=== PATIENT | female | born 1960 | race Caucasian/White ===

== ENCOUNTER 2019-08-21 06:18 | Outpatient (CLI) | payer OTHER ==
[2019-08-21 14:37] LABS: Hemoglobin 14.3 g/dL (12.0-16.0); Mean Corpuscular HGB CONC 32.5 g/dL (32.0-36.0); Mean Corpuscular Hemoglobin 30.5 pg (27.0-31.0); Mean Corpuscular Volume 93.9 fL (78.0-98.0); Mean Platelet Volume 7.3 fL (7.4-10.4); Platelet Count 350 thou/uL (130-400); RBC Distribution Width 11.5 % (11.5-14.5); White Blood Cell (WBC) Count 10.4 thou/uL (4.8-10.8)
[2019-08-22 10:57] LABS: SARS-CoV-2 MS2 Positive; SARS-CoV-2 N Gene Negative; SARS-CoV-2 S Gene Negative; SARS-CoV-2 orf1ab Negative
== END 2019-08-21 06:19 | disposition home or self-care (01) ==
LOC: LABBT 06:18
PROVIDERS: ATTEND Orthopaedic Surgery Sports Medicine
DX: Z01.818 Encounter for other preprocedural examination (principal); Z11.59 Encounter for screening for other viral diseases; S83.232D Complex tear of medial meniscus, current injury, left knee, subsequent encounter
CPT/HCPCS: 85027; 87635; 93005; 93010; U0003

== ENCOUNTER 2019-08-23 05:58 | Day surgery (SDC) | payer OTHER ==
[2019-08-21 13:16] VITALS: BMI 21.6
[2019-08-23] MEDS ORDERED: Fentanyl 100 MCG/2 ML VIAL ONE ×4 (06:09→08:22)
[2019-08-23] MEDS ORDERED: Midazolam HCl 2 mg/2 ml Vial ONE (06:39)
[2019-08-23] MEDS ORDERED: Dexamethasone 4 mg/ml Vial ONE (06:41)
[2019-08-23] MEDS ORDERED: Bupivacaine 0.25% HCL 30 ML VIAL ONE (06:52)
[2019-08-23] MEDS ORDERED: Lidocaine 1% w/Epinephrine 1:100K 20 ML VIAL ONE (06:52)
[2019-08-23] MEDS ORDERED: Bupivacaine PF 0.5% 30 ML VIAL ONE (06:52)
[2019-08-23] MEDS ORDERED: CEFAZOLIN 1 GM VIAL ONE (07:10)
[2019-08-23] MEDS ORDERED: Sodium Chloride 0.9% 100 ML ONE (07:12)
[2019-08-23] MEDS ORDERED: Ketorolac Tromethamine 30 MG/ML VIAL ONE (08:10)
[2019-08-23] MEDS ORDERED: Morphine 4 MG/ML VIAL ONE (08:24)
[2019-08-23] MEDS ORDERED: Morphine 2 MG/ML SYRINGE ONE (08:34)
--- NOTE | 2019-08-23 08:36 | OP ---
DATE OF PROCEDURE: 08/23/2019 PREOPERATIVE DIAGNOSES: 1. Left knee medial meniscus tear. 2. Left knee degenerative joint disease of the knee. POSTOPERATIVE DIAGNOSES: 1. Posterior horn medial meniscus tear. 2. Grade 4 chondral defect of the distal femur. 3. Grade 3 chondral defect of the lateral tibia. PROCEDURES PERFORMED: 1. Examination under anesthesia with diagnostic arthroscopy. 2. Arthroscopic partial posterior horn medial meniscectomy. 3. Arthroscopic chondroplasty of the patellofemoral joint and trochlear groove, a separate compartment. 4. Arthroscopic loose body removal. ANESTHESIA: General. TOURNIQUET TIME: 21 minutes. BLOOD LOSS: Minimal. DRAINS: None. COMPLICATIONS: None. DESCRIPTION OF PROCEDURE: Following induction of general anesthesia, the patient was placed supine on the operating room table. A pneumatic tourniquet was applied to proximal left thigh. The left leg was then placed in a leg holding device. Left leg was then prepped and draped in sterile fashion for surgery on the left knee. After exsanguination of the knee, the tourniquet was inflated to 300 mmHg. An arthroscope was inserted through a parapatellar lateral portal and the knee joint was examined. The intra-articular aspect of the knee demonstrated normal articular cartilage of the lateral femoral condyle. The lateral tibial articular surface had a chondral defect of the posterior aspect of the tibial articular surface. The area was depressed. There were no loose bodies or articular surface fragments. There was synovitis in the posterior compartment, that was lightly debrided. The meniscus again was completely normal. There was noted to be an osteochondral loose body at the anterior horn of the lateral meniscus, that was catching, locking, impinging on the anterior compartment. It was lightly debrided using motorized shaver to a smooth, stable base completely removing the loose body. The intercondylar notch demonstrated an intact ACL. The synovium was noted to be hypertrophied and rheumatoid like. After debridement, the ACL and PCL were completely normal. Medial compartment had articular surface degeneration in both the tibia and the femur, grade 2 and degenerative change. Minimal chondroplasty was required to obtain a smooth stable base. The medial meniscus had fraying of the posterior horn. It was carefully evaluated. There was noted to be no evidence of meniscal root tear, lesion or displacement. Remainder of meniscus was carefully debrided to a smooth stable base with a good stable meniscal rim remaining following minimal partial meniscectomy. Again, no remaining occult tears or meniscal fragments following partial meniscectomy. The patellofemoral joint had a large chondral defect of the trochlear groove, that was extensively debrided to a smooth stable base. There was large area of grade 3 to 4 articular surface degeneration following chondroplasty and debridement. There were no remaining flap tears or articular surface fragments surrounding the defect. After extensive chondroplasty debridement, arthroscopic equipment was removed. The wounds were closed using 3-0 nylon. 30 mL of 0.5% Marcaine and lidocaine with epinephrine was placed in the knee. Large compressive sterile dressing was applied. The patient tolerated the procedure well and was taken to recovery room in stable condition. Job ID: [id number]
[2019-08-23] MEDS ORDERED: PROPOFOL 200 MG/20 ML VIAL ONE (15:18)
[2019-08-23] MEDS ORDERED: Bupivacaine HCl 0.5%/Epinephrine 1:200,000/PF 30 ml Vial ONE (15:18)
[2019-08-23] MEDS ORDERED: Lidocaine 1% PF 5 ML VIAL ONE (15:18)
[2019-08-23] MEDS ORDERED: Ondansetron PF 4 MG/2 ML Vial ONE (15:18)
[2019-08-23] MEDS ORDERED: Dexamethasone 20 MG/5 ML VIAL ONE ×2 (15:18)
== END 2019-08-23 10:45 | disposition home or self-care (01) ==
LOC: SDC 05:58
PROVIDERS: ATTEND Orthopaedic Surgery Sports Medicine
PROC: 0SCD4ZZ Extirpation of Matter from Left Knee Joint, Percutaneous Endoscopic Approach (ICD-10-PCS; principal; 2019-08-23)
PROC: 3E0T3BZ Introduction of Anesthetic Agent into Peripheral Nerves and Plexi, Percutaneous Approach (ICD-10-PCS; principal; 2019-08-23)
PROC: 0SBD4ZZ Excision of Left Knee Joint, Percutaneous Endoscopic Approach (ICD-10-PCS; principal; 2019-08-23)
DX: S83.242A Other tear of medial meniscus, current injury, left knee, initial encounter (principal)
CPT/HCPCS: J0670; J0690; J1100; J1885; J2001; J2250; J2270; J2405; J2704; J3010; J3490; S0020